=== PATIENT | female | born 1990 | race Hispanic/Latino ===

== ENCOUNTER 2016-06-21 14:51 | Emergency (ER) | payer BC ==
[2016-06-21 14:56] VITALS: BMI 22.1
[2016-06-21 15:07] VITALS: BP 105/65; PULSE 81; RESP 18; TEMP 97.4; O2SAT 100
[2016-06-21] MEDS ORDERED: Sodium Chloride 0.9% 1,000 ML IV STA (15:26)
[2016-06-21 15:38] LABS: ADD MANUAL DIFF? NO
--- NOTE | 2016-06-21 15:50 | ED PDOC ---
Arrival/HPI - General Chief Complaint: Syncope Time Seen by Provider: 06/21/16 15:00 Historian: Patient - History of Present Illness Narrative History of Present Illness (Text): 06/21/16 15:42 26 F that is 18 weeks with PMHx of asthma presented to [facility] ED after experiencing a near syncopal episode while visiting family member in the hospital upstairs. Pt reports that she recently woke up around noon and came to the hospital to visit her grandfather who was recently placed on hospice. Pt stated that she did not have much to eat since she woke up. She was sitting in a chair when she was overcome with a sensation of nausea and started to feel warm and sweat. She reported "hunching over and blacking out", however she did not fall to the floor - remained in chair. A LENS BLOCK GAUGER call was placed and the pt was transerred to the ED. Pt continues to feel slightly nauseous. She denied fever, chills, sob, chest pains, palpitations, abdominal pains, v/d/c or urinary symptoms. Past medical history: Asthma PSHx: denies SHx: lives in [place] with partner, Denied tobacco/etoh/illicit drug abuse Family Hx: diabetes, cancer - bladder Meds: vitamins Allergies: dust/pollon/peach PMD: Dr. Douglas supply chain project manager: Dr. Rothman 06/21/16 15:55 Symptom Onset: Sudden Symptom Course: Improving Past Medical History - Past History Past History: No Previous - Tetanus Immunization Tetanus Immunization: Unknown - Past Medical History Past Medical History: No Previous - Cardiac Hx Cardiac Disorders: No Hx Pacemaker: No - Pulmonary Hx Respiratory Disorders: No - Neurological Hx Neurological Disorder: No Hx Paralysis: No - HEENT Hx HEENT Disorder: No - Renal Hx Renal Disorder: No - Endocrine/Metabolic Hx Endocrine Disorders: No - Hematological/Oncological Hx Blood Disorders: Yes Hx Anemia: Yes Hx Blood Transfusions: No Hx Blood Transfusion Reaction: (NA) - Integumentary Hx Dermatological Disorder: No - Musculoskeletal/Rheumatological Hx Musculoskeletal Disorders: No - Gastrointestinal Hx Gastrointestinal Disorders: Yes Hx Gastrointestinal Ulcer: Yes - Genitourinary/Gynecological Hx Genitourinary Disorders: No - Psychiatric Hx Psychophysiologic Disorder: No Hx Emotional Abuse: No Hx Physical Abuse: No Hx Substance Use: No (CHECK ON ADMISSION/MOTHER DID NOT KNOW) - Past Surgical History Past Surgical History: No Previous - Anesthesia Hx Anesthesia Reactions: No Hx Malignant Hyperthermia: No - Suicidal Assessment Feels Threatened In Home Enviroment: No Family/Social History Family/Social History: Diabetes Smoking Status: Current Some Days Smoker Hx Alcohol Use: Yes Hx Substance Use: No (CHECK ON ADMISSION/MOTHER DID NOT KNOW) Allergies/Home Meds Allergies/Adverse Reactions: Allergies peach Allergy (Intermediate, Uncoded 09/20/14 20:21) RASH Review of Systems - Review of Systems Constitutional: Normal Eyes: Normal ENT: Normal Respiratory: Normal Cardiovascular: Normal Gastrointestinal: Normal Genitourinary Female: Normal Musculoskeletal: Normal Skin: Normal Neurological: Normal Endocrine: Normal Hemo/Lymphatic: Normal Psychiatric: Normal Physical Exam Vital Signs Reviewed: Yes Vital Signs Temp Pulse Resp BP Pulse Ox 06/21/16 15:06 97.4 F L 81 18 105/65 100 Temperature: Afebrile Blood Pressure: Normal Pulse: Regular Respiratory Rate: Normal Appearance: Positive for: Well-Appearing, Non-Toxic, Comfortable Pain Distress: None Mental Status: Positive for: Alert and Oriented X 3 Finger Stick Blood Glucose: 74 - Systems Exam Head: Present: Atraumatic, Normocephalic Pupils: Present: PERRL Extroacular Muscles: Present: EOMI Conjunctiva: Present: Normal Mouth: Present: Moist Mucous Membranes Neck: Present: Normal Range of Motion Respiratory/Chest: Present: Clear to Auscultation, Good Air Exchange. No: Respiratory Distress, Accessory Muscle Use Cardiovascular: Present: Regular Rate and Rhythm, Normal S1, S2. No: Murmurs Abdomen: Present: Normal Bowel Sounds. No: Tenderness, Distention, Peritoneal Signs Back: Present: Normal Inspection Upper Extremity: Present: Normal Inspection. No: Cyanosis, Edema Lower Extremity: Present: Normal Inspection. No: Edema Neurological: Present: GCS=15, CN II-XII Intact, Speech Normal Skin: Present: Warm, Dry, Normal Color. No: Rashes Psychiatric: Present: Alert, Oriented x 3, Normal Insight, Normal Concentration Medical Decision Making ED Course and Treatment: 06/21/16 15:51 26 F that is 18weeks with Past medical history of asthma presented with likely vasovagal pre/syncope. - cbc - cmp - fingerstick - IVF - heart monitor - Reassess and dispo 06/21/16 15:57 Heart Rate was noted to be 150 on doppler. 06/21/16 16:17 All labs reviewed, slight transaminitis noted, however remaining labwork wnl. Pt is reassessed and states she is feeling better. Reassessment Condition: Improved - Lab Interpretations Lab Results: 06/21/16 15:37 06/21/16 15:37 Lab Results 06/21/16 15:37: WBC 8.5, RBC 3.64, Hgb 10.5 L, Hct 30.9 L, MCV 84.9, MCH 28.8, MCHC 34.0, RDW 13.7, Plt Count 287, MPV 9.9, Gran % 73.9 H, Lymph % (Auto) 18.2 L, Gregory % (Auto) 5.8, Eos % (Auto) 2.0, Baso % (Auto) 0.1, Gran # 6.26, Lymph # 1.5, Gregory # 0.5, Eos # 0.2, Baso # 0.01, Sodium 136, Potassium 3.6, Chloride 102 , Carbon Dioxide 23, Anion Gap 15, BUN 11, Creatinine 0.6, Est GFR ( Amer ) > 60, Est GFR (Non-Af Amer) > 60, Random Glucose 101, Calcium 9.4, Total Bilirubin 0.6, AST 61 H, ALT 68 H, Alkaline Phosphatase 52, Total Protein 7.2, Albumin 3.8, Globulin 3.5, Albumin/Globulin Ratio 1.1 I have reviewed the lab results: Yes Interpretation: All labs normal - EKG Interpretation EKG Interpretation (Text): 06/21/16 15:57 NSR @ [address] changes - Medication Orders Current Medication Orders: Sodium Chloride (Sodium Chloride 0.9%) 1,000 mls @ 999 mls/hr IV .Q1H1M STA Stop: 06/21/16 16:26 Last Admin: 06/21/16 15:43 Dose: 999 MLS/HR eMAR Start Stop Document 06/21/16 15:43 [facility] (Rec: 06/21/16 15:44 [facility]-[id number]) Intravenous Solution Start Date 06/21/16 Start Time 15:44 End Date 06/21/16 End time 16:44 Total Infusion Time 60 Disposition/Present on Arrival - Present on Arrival Any Indicators Present on Arrival: No History of DVT/PE: No History of Uncontrolled Diabetes: No Urinary Catheter: No History of Decub. Ulcer: No History Surgical Site Infection Following: None - Disposition Have Diagnosis and Disposition been Completed?: Yes Diagnosis: Vasovagal near syncope Disposition: HOME/ ROUTINE Disposition Time: 14:15 Condition: IMPROVED Discharge Instructions (ExitCare): Syncope (ED) Additional Instructions: 1. Pt is to eat regularly and drink plenty of fluids 2. Pt is to FU with PMD/ JUNIOR AUTOMATION ENGINEER within a couple of weeks 3. Pt is welcomed to return to [facility] ED if develop any acute symptoms Referrals: Mason Douglas MD [Primary Care Provider] - Follow up with primary Abel Rothman MD [Non-Staff] - Follow up with primary
[2016-06-21 15:54] LABS: BASO # 0.01 K/mm3 (0.0-2.0); BASO % 0.1 % (0.0-3.0); EOS # 0.2 (0.0-0.7); GRAN # 6.26 (1.4-6.5); GRAN % 73.9 % (50.0-68.0); HEMATOCRIT 30.9 % (36.0-48.0); LYMPH # 1.5 (1.2-3.4); LYMPH % 18.2 % (22.0-35.0); MEAN CELL VOLUME 84.9 fL (80.0-105.0); MEAN CORPUSCULAR HEMOGLOBIN 28.8 pg (25.0-35.0); MEAN PLATELET VOLUME 9.9 fl (7.0-11.0); MONO # 0.5 (0.1-0.6); MONO % 5.8 % (1.0-6.0); PLATELET COUNT 287 10^3/uL (120.0-450.0); RED CELL DISTRIBUTION WIDTH 13.7 % (11.5-14.5); WHITE BLOOD COUNT 8.5 10^3/ul (4.5-11.0)
[2016-06-21 15:55] LABS: ALB/GLOB RATIO 1.1 (1.1-1.8); ALKALINE PHOSPHATASE 52 U/L (38-133); ALT/SGPT 68 U/L (7-56); AST/SGOT 61 U/L (15-39); BILIRUBIN,TOTAL 0.6 mg/dL (0.2-1.3); BLOOD UREA NITROGEN 11 mg/dL (7-21); CALCIUM 9.4 mg/dL (8.4-10.5); CARBON DIOXIDE 23 mmol/L (21-33); CHLORIDE 102 mmol/L (98-107); GFR AFRICAN-AMERICAN > 60; GLUCOSE,RANDOM 101 mg/dL (70-110); POTASSIUM 3.6 mmol/L (3.6-5.0); SODIUM 136 mmol/L (132-148); TOTAL PROTEIN 7.2 g/dL (5.8-8.3)
--- NOTE | 2016-06-21 18:31 | CARD ---
APPROVED REPORT EKG Measurement Heart [id number] <Conclusion> Sinus rhythm with marked sinus arrhythmia Otherwise normal ECG
== END 2016-06-21 16:45 | disposition home or self-care (01) ==
LOC: ED 14:51
DX: R55 Syncope and collapse (principal)
CPT/HCPCS: 80053; 85025; 93005; 96360; 99285; J7040